=== PATIENT | male | born 1955 | race Caucasian/White ===

== ENCOUNTER 2017-12-25 08:35 | Day surgery (SDC) | payer OTHER, BC ==
[~2017-12-25] VITALS: Ht 163.8 cm; Wt 72.6 kg
[~2017-12-25 08:35] MED LIST: VITAMIN D2000 UNI1 PO; ZESTRIL10 MG PO
[2017-12-25 09:12] VITALS: BP 162/86
[2017-12-25 11:40] VITALS: BP 162/86
[2017-12-25 12:26] VITALS: BP 151/80
== END 2017-12-25 12:30 | disposition home or self-care (01) ==
LOC: SDC 08:35
DX: H35.371 Puckering of macula, right eye (principal); H35.81 Retinal edema; I10 Essential (primary) hypertension; F17.290 Nicotine dependence, other tobacco product, uncomplicated
CPT/HCPCS: J0690; J0713; J3300